=== PATIENT | female | born 1955 | race Caucasian/White ===

== ENCOUNTER → 2016-11-24 | Outpatient (CLI) | payer BC ==
--- NOTE | 2016-11-24 10:48 | EKG ---
[address] [address] Measurements Intervals [place] Rate: 75 P: 62 [place]: 151 QRS: 56 QRSD: 83 T: 52 QT: 416 QTc: 445 Interpretive Statements SINUS RHYTHM WITH FREQUENT VENTRICULAR PREMATURE COMPLEXES ABNORMAL RHYTHM ECG No previous ECG available for comparison Electronically Signed On 11-24-16 15:44:27 MST by Abdullahi Barnard [email or web address]
== END ==
LOC: EKG 10:41
PROVIDERS: ATTEND Family Medicine
DX: I49.9 Cardiac arrhythmia, unspecified (principal); R94.31 Abnormal electrocardiogram [ECG] [EKG]
CPT/HCPCS: 93005; 93010